=== PATIENT | male | born 1950 | race Caucasian/White ===

== ENCOUNTER 2016-08-05 15:01 | Emergency (ER) | payer MEDICARE ==
[2016-08-05 14:47] LABS: INR 1.1 INR (0.9-1.1); PROTHROMBIN TIME 13.2 SECONDS (9.0-13.6)
[~2016-08-05 15:01] MED LIST: AMIODARONE HCL200 M1 PO; ATIVAN1 M2 PO; COMPAZINE10 MG PO; DEXAMETHASONE4 M1 PO; FENTANYL1 EAC2 TOP; LEXAPRO20 M2 PO; ROXICODONE5 M2 PO; WARFARIN SODIUM6 M1 PO; ZOFRAN8 M1 PO
[2017-03-22] MEDS ORDERED: AUGMENTIN 875-1 EAC2 PO (12:29)
== END 2016-08-05 15:06 ==
LOC: EDMED 15:01
PROVIDERS: Emergency Medicine
DX: Z93.1 Gastrostomy status (principal); I48.0 Paroxysmal atrial fibrillation; Z85.72 Personal history of non-Hodgkin lymphomas; Z87.891 Personal history of nicotine dependence; Z79.01 Long term (current) use of anticoagulants; Z79.899 Other long term (current) drug therapy